=== PATIENT | female | born 1975 | race Caucasian/White ===

== ENCOUNTER 2017-11-06 12:13 | Inpatient (IN) | payer OTHER ==
--- NOTE | 2017-11-06 12:22 | PDOC ---
History of Present Illness - General Chief Complaint: Lethargy Stated Complaint: LETHARGIC (PCP SENT) Time Seen by Provider: 11/06/17 12:20 History Source: Patient, Primary Care Provider Exam Limitations: No Limitations - History of Present Illness Initial Comments: This is a 42 YOF with h/o persistent dysfunctional uterine bleeding despite uterine ablation 1.5 years ago, multiple blood transfusions, and regular iron infusions for anemia, who was instructed by her PCP Dr. Michelle to come in because her h/h drawn yesterday resulted with Hgb 5.6 and Hct 18.9. The patient herself notes that she has had a continuous menstrual period for the past month, which started out as horse trainer spotting but over the past week has become very heavy with bright red blood and clots. Over the past week she has has worsening headache, SOB especially on exertion, palpitations, mild midsternal chest heaviness, and generalized weakness. This is similar to her prior episodes of severe anemia requiring blood transfusion. She denies any cough, orthopnea, leg swelling, fever, chills, vomiting, diarrhea, constipation , or other symptoms. Past History - Past Medical History Allergies/Adverse Reactions: Allergies Allergy/AdvReac Type Severity Reaction Status Date / Time No Known Drug Allergies Allergy Verified 09/06/15 07:13 Home Medications: Ambulatory Orders NK [No Known Home Medication] 09/04/15 Anemia: Yes Asthma: No Cancer: No Cardiac Disorders: No CVA: No COPD: No CHF: No Dementia: No Diabetes: No GI Disorders: No Disorders: No HTN: No Hypercholesterolemia: No Liver Disease: No Seizures: No Thyroid Disease: No - Surgical History Abdominal Surgery: No Appendectomy: Yes Cardiac Surgery: No Cholecystectomy: No Lung Surgery: No Neurologic Surgery: No Orthopedic Surgery: No - Suicide/Smoking/Psychosocial Hx Smoking History: Current every day smoker Have you smoked in the past 12 months: Yes Number of Cigarettes Smoked Daily: 40 Cigars Per Day: 30 'Breaking Loose' booklet given: 09/06/15 Hx Alcohol Use: No Drug/Substance Use Hx: No Substance Use Type: None Hx Substance Use Treatment: No Cardiac Specific PMH - Complaint Specific PMHX Pacemaker: No Review of Systems - Review of Systems Able to Perform ROS?: Yes Constitutional: No: Chills, Fever, Unexplained wgt Loss HEENTM: No: Nose Congestion, Throat Pain Respiratory: Yes: Shortness of Breath, SOB with Exertion. No: Cough, Productive cough Cardiac (ROS): Yes: Chest Pain, Palpitations. No: Edema ABD/GI: No: Constipated, Diarrhea, Nausea, Vomiting : No: Burning, Dysuria Musculoskeletal: No: Back Pain, Neck Pain Integumentary: No: Bruising, Rash Neurological: Yes: Headache. No: Numbness, Tingling, Weakness, Dizziness Endocrine: No: Unexplained Weight Gain, Unexplained Weight Loss *Physical Exam - Vital Signs Last Vital Signs Temp Pulse Resp BP Pulse Ox 97.7 F 94 H 16 123/73 100 11/06/17 12:20 11/06/17 12:20 11/06/17 12:20 11/06/17 12:20 11/06/17 12:20 - Physical Exam General Appearance: Yes: Nourished, Other (pleasant adult female who appears very pale, conversive and alert and oriented and answers questions appropriately ). No: Apparent Distress HEENT: positive: EOMI, Normal Voice, Pale Conjunctivae, Hearing Grossly Normal. negative: Scleral Icterus (R), Scleral Icterus (L), Nasal Congestion Neck: positive: Trachea midline, Supple. negative: Tender, Rigid Respiratory/Chest: positive: Lungs Clear, Normal Breath Sounds. negative: Respiratory Distress, Crackles, Rhonchi, Stridor, Wheezing Cardiovascular: positive: Regular Rhythm, Regular Rate. negative: Murmur Gastrointestinal/Abdominal: positive: Normal Bowel Sounds, Soft. negative: Tender, Organomegaly, Pulsatile Mass, Guarding Musculoskeletal: positive: Normal Inspection. negative: Decreased Range of Motion, Vertebral Tenderness Extremity: positive: Normal Capillary Refill, Normal Inspection, Normal Range of Motion. negative: Tender, Cyanosis Integumentary: positive: Normal Color, Dry, Warm, Pale. negative: Erythema, Rash, Bruising Neurologic: positive: sales administration manager II-XII NML intact (grossly), Fully Oriented, Alert, Normal Mood/Affect, Normal Response, Motor Strength /5 ED Treatment Course - LABORATORY CBC & Chemistry Diagram: 11/06/17 13:43 11/06/17 13:43 - ADDITIONAL ORDERS Additional order review: Laboratory Results 11/06/17 11/06/17 11/06/17 13:43 13:42 13:42 PT with INR 11.00 INR 0.97 PTT (Actin FS) 24.7 L Sodium 141 Potassium 4.3 Chloride 110 H Carbon Dioxide 23 Anion Gap 8 BUN 11 Creatinine 0.7 Creat Clearance w eGFR > 60 Random Glucose 122 H Calcium 8.3 L Ferritin 1.4 L Total Bilirubin 0.2 AST 22 ALT 20 Alkaline Phosphatase 41 L Creatine Kinase 88 Troponin I < 0.02 B-Natriuretic Peptide 411.85 H Total Protein 6.2 L Albumin 3.2 L Blood Type Cancelled Antibody Screen Cancelled Crossmatch 11/06/17 13:20 PT with INR INR PTT (Actin FS) Sodium Potassium Chloride Carbon Dioxide Anion Gap BUN Creatinine Creat Clearance w eGFR Random Glucose Calcium Ferritin Total Bilirubin AST ALT Alkaline Phosphatase Creatine Kinase Troponin I B-Natriuretic Peptide Total Protein Albumin Blood Type A NEGATIVE Antibody Screen Negative Crossmatch See Detail 11/06/17 13:43 RBC 2.47 L D MCV 71.5 L MCHC 29.0 L RDW 18.7 H MPV 9.0 Neutrophils % 58.8 Lymphocytes % 31.8 Monocytes % 4.3 Eosinophils % 3.6 Basophils % 1.5 - Medications Given in the ED: ED Medications Discontinued Medications Generic Name Dose Route Start Last Admin Trade Name Freq PRN Reason Stop Dose Admin Sodium Chloride 1,000 ml 11/06/17 12:25 11/06/17 13:30 Normal Saline - IV 11/06/17 12:26 1,000 ml ONCE ONE Administration Medical Decision Making - Medical Decision Making Adult patient was sent to the ED by their outpatient provider for symptomatic anemia requiring blood transfusion. Initial Vital Signs Temp Pulse Resp BP Pulse Ox 97.7 F 94 H 16 123/73 100 11/06/17 12:20 11/06/17 12:20 11/06/17 12:20 11/06/17 12:20 11/06/17 12:20 Exam: awake, a/o x4, appears pale, pale conjunctiva, normal heart and lung and abdominal exams, no leg edema DDX IBNLT: W/U ordered: CBCD CMP Type and Screen Coags EKG TX ordered: IVF pRBC x3 units Will need to be monitored for transfusion rxn i.e. anaphylaxis, hemolytic rxn, urticarial rxn, nonhemolytic febrile rxn, TRALI, and delayed hemolytic reaction. EKG: CXR: Labs: Repeat VS: Reassessment: 11/06/17 15:17 The Pt is unsafe for discharge at this time. They require further hospital observation, workup, and treatment. Microblog sent to [facility] for admission (as per request from Dr. Michelle) . Spoke with [facility], in agreement Pt to be admitted to [facility]. Decision to Admit order placed to [facility] covering attending Dr. Greene. *DC/Admit/Observation/Transfer Diagnosis at time of Disposition: Dysfunctional uterine bleeding Anemia Qualifiers: Anemia type: unspecified type Qualified Code(s): D64.9 - Anemia, unspecified Headache Qualifiers: Headache type: unspecified Headache chronicity pattern: unspecified pattern Intractability: not intractable Qualified Code(s): R51 - Headache - Discharge Dispostion Condition at time of disposition: Guarded Decision to Admit order: Yes Decision to Admit order Date/Time: Decision to Admit Order Category Date Time Status Decision to Admit to Hospital Routine Admission 11/06/17 15:16 Ordered - Referrals Referrals: Ariadna Michelle MD [Primary Care Provider] - - Patient Instructions - Post Discharge Activity
[2017-11-06] MEDS ORDERED: SODIUM CHLORIDE 0.9% 500 ML INFUS.BAG IV ONE (12:25)
--- NOTE | 2017-11-06 12:44 | PDOC ---
Attending Attestation - Resident Resident Name: Maira Bojorquez - ED Attending Attestation I have performed the following: I have examined & evaluated the patient, The case was reviewed & discussed with the resident, I agree w/resident's findings & plan, Exceptions are as noted - HPI HPI: 11/06/17 13:09 Patient is a 42 F, with PMHx of menorrhagia with associated anemia, who presents with 1 months of heavy vaginal bleeding. Patient states that 2 months ago she had an uterine ablation, and prior to that she has been admitted for a transfusion twice. She states that she gets infused with iron every 3 months. She states that it began as light spotting but she is now experiencing a constant heavy flow with bright red blood, and is passing large dark red clots. She also reports feeling weak, lightheaded and short of breath (especially on exertion). She also reports chest heaviness. She states that she has noticed she looks paler than usual. PCP: Ariadna Michelle M.D. Allergies: NKDA Social Hx: Smokes cigarettes> 1pack /day. Denies EtOH or illicit drug use. - Physicial Exam PE: 11/06/17 12:43 agree with resident exam - Medical Decision Making 11/06/17 13:42 42yo F hx DUB presents with 1 month of progressive vaginal bleeding, now with symptomatic anemia. WIll rpt labs, transfuse, discuss with Dr. Arriaga and admit. Pt HDS at this time. Heart Score/ECG Review #1 11/06/17 14:24 Twelve-lead EKG was performed and reviewed by me. Normal sinus rhythm, rate 87. Normal axis and intervals. No ST elevations. Isolated T-wave inversion in lead III.
[2017-11-06 13:46] LABS: BASO % 1.5 % (0-2.0); EOS % 3.6 % (0-4.5); HEMATOCRIT 17.7 % (32.4-45.2); LYMPH % 31.8 % (8-40); MCH 20.8 pg (25.7-33.7); MEAN CELL VOLUME 71.5 fl (80-96); MONO % 4.3 % (3.8-10.2); NEUT % 58.8 % (42.8-82.8); PLATELET COUNT 326 K/MM3 (134-434); RBC 2.47 M/mm3 (3.60-5.2); RDW 18.7 % (11.6-15.6); WHITE BLOOD COUNT 8.3 K/mm3 (4.0-10.0)
[2017-11-06 13:55] LABS: HEMOGLOBIN 5.1 GM/dL (10.7-15.3)
[2017-11-06 14:12] LABS: INR 0.97 (0.82-1.09)
[2017-11-06 14:14] LABS: ALBUMIN 3.2 g/dl (3.4-5.0); ANION GAP 8 (8-16); BLOOD UREA NITROGEN 11 mg/dL (7-18); CALCIUM 8.3 mg/dL (8.5-10.1); CHLORIDE 110 mmol/L (98-107); CO2 23 mmol/L (21-32); GLUCOSE,RANDOM 122 mg/dL (74-106); POTASSIUM 4.3 mmol/L (3.5-5.1); SODIUM 141 mmol/L (136-145)
[2017-11-06 14:14] LABS: ACTIVATED PTT 24.7 SECONDS (26.9-34.4)
[2017-11-06 14:17] LABS: BILIRUBIN,TOTAL 0.2 mg/dL (0.2-1.0); CREATININE 0.7 mg/dL (0.55-1.02); SGOT/AST 22 U/L (15-37); SGPT/ALT 20 U/L (12-78); TOT PROT 6.2 g/dl (6.4-8.2)
[2017-11-06 14:20] LABS: ALK PHOS 41 U/L (45-117); N-TERMINAL BNP 411.85 pg/ml (5-125)
[2017-11-06 14:32] LABS: ANISOCYTOSIS 1+; PLATELET ESTIMATE NORMAL; TEAR DROP CELLS 1+
--- NOTE | 2017-11-06 15:50 | HP ---
CHIEF COMPLAINT: vaginal bleeding, shortness of breath PCP: Dr. Michelle HISTORY OF PRESENT ILLNESS: This is a 42 year old female with PMHx of vaginal bleeding (s/p endometrial ablasion 2015), who presented to the ED with 8 days of severe vaginal bleeding and shortness of breath. The patient reports about a month ago she developed spotting which then turned into vaginal hemorrhaging about 8 days ago. She reports episodes of passing clots as well. The patient states over the past two days she has had some dyspnea on exertion. She denies any chest pain, palpitations, dizziness, syncope, headache, abdominal pain, nausea, vomiting, diarrhea, lower extremity swelling. ER course was notable for: (1) Temp 97.7, pulse 94, BP 123/73, resp 16, O2 100% on RA (2) Hgb 5.1 Recent Travel: denies PAST MEDICAL HISTORY: as above PAST SURGICAL HISTORY: as above Social History: Smokinppd for "years" Alcohol: denies Drugs: denies Family History: Allergies No Known Drug Allergies Allergy (Verified 09/06/15 07:13) HOME MEDICATIONS: Home Medications Medication Instructions Recorded NK [No Known Home Medication] 09/04/15 REVIEW OF SYSTEMS CONSTITUTIONAL: Absent: fever, chills, diaphoresis, generalized weakness, malaise, loss of appetite, weight change HEENT: Absent: rhinorrhea, nasal congestion, throat pain, throat swelling, difficulty swallowing, mouth swelling, ear pain, eye pain, visual changes CARDIOVASCULAR: Absent: chest pain, syncope, palpitations, irregular heart rate, lightheadedness , peripheral edema RESPIRATORY: GALINDO x2 days Absent: cough, orthopnea, wheezing, stridor, hemoptysis GASTROINTESTINAL: Absent: abdominal pain, abdominal distension, nausea, vomiting, diarrhea, constipation, melena, hematochezia GENITOURINARY: Vaginal bleeding x8 days, heavy at times and passing clots. Absent: dysuria, frequency, urgency, hesitancy, hematuria, flank pain MUSCULOSKELETAL: Absent: myalgia, arthralgia, joint swelling, back pain, neck pain SKIN: Absent: rash, itching, pallor HEMATOLOGIC/IMMUNOLOGIC: Absent: easy bleeding, easy bruising, lymphadenopathy, frequent infections ENDOCRINE: Absent: unexplained weight gain, unexplained weight loss, heat intolerance, cold intolerance NEUROLOGIC: Absent: headache, focal weakness or paresthesias, dizziness, unsteady gait, seizure, mental status changes, bladder or bowel incontinence PSYCHIATRIC: Absent: anxiety, depression, suicidal or homicidal ideation, hallucinations. PHYSICAL EXAMINATION Vital Signs - 24 hr 11/06/17 11/06/17 11/06/17 12:20 15:00 15:32 Temperature 97.7 F 97.8 F 98.1 F Pulse Rate 94 H Pulse Rate [ 87 82 Apical] Respiratory 16 20 20 Rate Blood Pressure 123/73 Blood Pressure 115/75 112/72 [Left Arm] O2 Sat by Pulse 100 100 100 Oximetry (%) GENERAL: Awake, alert, and fully oriented, in no acute distress. HEAD: Normal with no signs of trauma. EYES: Pupils equal, round and reactive to light, extraocular movements intact, sclera anicteric, conjunctiva clear. No lid lag. EARS, NOSE, THROAT: Ears normal, nares patent, oropharynx clear without exudates. Moist mucous membranes. NECK: Normal range of motion, supple without lymphadenopathy, JVD, or masses. LUNGS: Breath sounds equal, clear to auscultation bilaterally. No wheezes, and no crackles. No accessory muscle use. HEART: Regular rate and rhythm, normal S1 and S2 without murmur, rub or gallop. ABDOMEN: Soft, nontender, not distended, normoactive bowel sounds, no guarding, no rebound, no masses. No hepatomegaly or splenomegaly. MUSCULOSKELETAL: Normal range of motion at all joints. No bony deformities or tenderness. No CVA tenderness. UPPER EXTREMITIES: 2+ pulses, warm, well-perfused. No cyanosis. No clubbing. No peripheral edema. LOWER EXTREMITIES: 2+ pulses, warm, well-perfused. No calf tenderness. No peripheral edema. NEUROLOGICAL: Cranial nerves II-XII intact. Normal speech. Normal gait. PSYCHIATRIC: Cooperative. Good eye contact. Appropriate mood and affect. SKIN: Warm, dry, normal turgor, no rashes or lesions noted, normal capillary refill. Laboratory Results - last 24 hr 11/06/17 11/06/17 11/06/17 13:20 13:42 13:42 WBC RBC Hgb Hct MCV MCH MCHC RDW Plt Count MPV Absolute Neuts (auto) Neutrophils % Lymphocytes % Monocytes % Eosinophils % Basophils % Nucleated RBC % Hypochromia Platelet Estimate Anisocytosis Tear Drop Cells PT with INR 11.00 INR 0.97 PTT (Actin FS) 24.7 L Sodium Potassium Chloride Carbon Dioxide Anion Gap BUN Creatinine Creat Clearance w eGFR Random Glucose Calcium Ferritin Total Bilirubin AST ALT Alkaline Phosphatase Creatine Kinase Troponin I B-Natriuretic Peptide Total Protein Albumin Blood Type A NEGATIVE Cancelled Antibody Screen Negative Cancelled Crossmatch See Detail 11/06/17 11/06/17 13:43 13:43 WBC 8.3 RBC 2.47 L D Hgb 5.1 L* D Hct 17.7 L D MCV 71.5 L MCH 20.8 L MCHC 29.0 L RDW 18.7 H Plt Count 326 MPV 9.0 Absolute Neuts (auto) 4.9 Neutrophils % 58.8 Lymphocytes % 31.8 Monocytes % 4.3 Eosinophils % 3.6 Basophils % 1.5 Nucleated RBC % 0 Hypochromia 3+ Platelet Estimate Normal Anisocytosis 1+ Tear Drop Cells 1+ PT with INR INR PTT (Actin FS) Sodium 141 Potassium 4.3 Chloride 110 H Carbon Dioxide 23 Anion Gap 8 BUN 11 Creatinine 0.7 Creat Clearance w eGFR > 60 Random Glucose 122 H Calcium 8.3 L Ferritin 1.4 L Total Bilirubin 0.2 AST 22 ALT 20 Alkaline Phosphatase 41 L Creatine Kinase 88 Troponin I < 0.02 B-Natriuretic Peptide 411.85 H Total Protein 6.2 L Albumin 3.2 L Blood Type Antibody Screen Crossmatch Assessment: This is a 42 year old female with PMHx of vaginal bleeding (s/p endometrial ablasion 2015), who presented to the ED with 8 days of severe vaginal bleeding and shortness of breath. Plan: 1) Menorrhagia - Severe symptomatic anemia - Hgb 5.1, ordered for 3u PRBC - Monitor H/H - F/u reptile keeper consult 2) F/E/N: - Monitor electrolytes - Regular diet 3) Prophylaxis: - Hold all chemical DVT prophylaxis 2/2 severe anemia - SCDs bilaterally 4) Dispo: - Requires continued inpatient care CODE STATUS: FULL CODE Visit type - Emergency Visit Emergency Visit: Yes ED Registration Date: 11/06/17 Care time: The patient presented to the Emergency Department on the above date and was hospitalized for further evaluation of their emergent condition. - New Patient This patient is new to me today: Yes Date on this admission: 11/06/17 - Critical Care Critical Care patient: No Hospitalist Screening - Colonoscopy Questionnaire Colonoscopy Questionnaire: Colonoscopy Questionnaire - Patient: 50 - 75 years old and never had a screening colonoscopy: No History of colon or rectal polyps, or CA: No History of IBD, Crohn's disease or UC: No History of abdominal radiation therapy as a child: No - Relative: 1 with colon or rectal CA, or polyps at age 60 or younger: No Colon or rectal CA diagnosed at age 45 or younger: No Multiple relatives with colon or rectal CA: No - Outcome: Screening Result: Negative Screen
[2017-11-06 18:33] VITALS: BMI 29.8
[2017-11-07 07:23] LABS: EOS % 3.5 % (0-4.5); HEMATOCRIT 24.5 % (32.4-45.2); HEMOGLOBIN 8.1 GM/dL (10.7-15.3); LYMPH % 27.5 % (8-40); MCH 25.6 pg (25.7-33.7); MCHC 33.1 g/dl (32.0-36.0); MEAN CELL VOLUME 77.4 fl (80-96); MEAN PLT VOLUME 9.3 fl (7.5-11.1); MONO % 6.3 % (3.8-10.2); NEUT % 61.7 % (42.8-82.8); PLATELET COUNT 265 K/MM3 (134-434); RBC 3.16 M/mm3 (3.60-5.2); RDW 20.7 % (11.6-15.6); WHITE BLOOD COUNT 9.9 K/mm3 (4.0-10.0)
[2017-11-07 08:18] LABS: ALBUMIN 2.9 g/dl (3.4-5.0); CALCIUM 7.8 mg/dL (8.5-10.1); CHLORIDE 110 mmol/L (98-107); POTASSIUM 4.6 mmol/L (3.5-5.1); SODIUM 140 mmol/L (136-145)
[2017-11-07 08:25] LABS: ALK PHOS 41 U/L (45-117); ANION GAP 5 (8-16); BILIRUBIN,TOTAL 0.3 mg/dL (0.2-1.0); BLOOD UREA NITROGEN 13 mg/dL (7-18); CO2 25 mmol/L (21-32); CREATININE 0.7 mg/dL (0.55-1.02); GLUCOSE,RANDOM 90 mg/dL (74-106); SGOT/AST 17 U/L (15-37); SGPT/ALT 18 U/L (12-78); TOT PROT 5.6 g/dl (6.4-8.2)
[2017-11-07 08:38] VITALS: BP 120/89; PULSE 84; TEMP 97.4
--- NOTE | 2017-11-07 10:08 | PN ---
Progress Note (short form) - Note Progress Note: Subjective: The patient was seen and examined at the bedside, she has no complaints today and would like to go home Seen by Dr. Stern, recommend Depo-Provera IM and ultrasound Current Medications Generic Name Dose Route Start Last Admin Trade Name Francisco PRN Reason Stop Dose Admin Medroxyprogesterone Acetate 150 mg 11/07/17 10:17 Depo-Provera - IM 11/07/17 10:18 ONCE ONE Objective: Vital Signs Period Temp Pulse Resp BP Sys/Pierce Pulse Ox Last 24 Hr 97.4 F-98.9 F 78-94 15-20 112-147/53-89 100-100 Physical Exam: General: NAD, A&Ox3 Lungs: CTA bilaterally Heart: RRR, S1S2 Abd: Soft, non-tender, non-distended. Normoactive bowel sounds Ext: Warm, well-perfused. 2+ DP/PT bilaterally Neuro: CN 2-12 intact CBCD WBC 9.9 K/mm3 (4.0-10.0) 11/07/17 06:30 RBC 3.16 M/mm3 (3.60-5.2) L D 11/07/17 06:30 Hgb 8.1 GM/dL (10.7-15.3) L D 11/07/17 06:30 Hct 24.5 % (32.4-45.2) L D 11/07/17 06:30 MCV 77.4 fl (80-96) L 11/07/17 06:30 MCHC 33.1 g/dl (32.0-36.0) 11/07/17 06:30 RDW 20.7 % (11.6-15.6) H 11/07/17 06:30 Plt Count 265 K/MM3 (134-434) 11/07/17 06:30 MPV 9.3 fl (7.5-11.1) 11/07/17 06:30 CMP Sodium 140 mmol/L (136-145) 11/07/17 06:30 Potassium 4.6 mmol/L (3.5-5.1) 11/07/17 06:30 Chloride 110 mmol/L (98-107) H 11/07/17 06:30 Carbon Dioxide 25 mmol/L (21-32) 11/07/17 06:30 Anion Gap 5 (8-16) L 11/07/17 06:30 BUN 13 mg/dL (7-18) 11/07/17 06:30 Creatinine 0.7 mg/dL (0.55-1.02) 11/07/17 06:30 Creat Clearance w eGFR > 60 (>60) 11/07/17 06:30 Random Glucose 90 mg/dL (74-106) 11/07/17 06:30 Calcium 7.8 mg/dL (8.5-10.1) L 11/07/17 06:30 Total Bilirubin 0.3 mg/dL (0.2-1.0) D 11/07/17 06:30 AST 17 U/L (15-37) 11/07/17 06:30 ALT 18 U/L (12-78) 11/07/17 06:30 Alkaline Phosphatase 41 U/L (45-117) L 11/07/17 06:30 Total Protein 5.6 g/dl (6.4-8.2) L 11/07/17 06:30 Albumin 2.9 g/dl (3.4-5.0) L 11/07/17 06:30 CARDIAC ENZYMES Creatine Kinase 88 IU/L (26-192) 11/06/17 13:43 Troponin I < 0.02 ng/ml (0.00-0.05) 11/06/17 13:43 Assessment: This is a 42 year old female with PMHx of vaginal bleeding (s/p endometrial ablasion 2015), who presented to the ED with 8 days of severe vaginal bleeding and shortness of breath. Plan: 1) Menorrhagia - Severe symptomatic anemia - Hgb 8.1 s/p 3u PRBC - F/u ultrasound - Will give Depo-Provera per real estate manager - F/u real estate manager consult 2) F/E/N: - Monitor electrolytes - Regular diet 3) Prophylaxis: - Hold all chemical DVT prophylaxis 2/2 severe anemia - SCDs bilaterally - OOB ambulating 4) Dispo: - Likely discharge after TUBE LANCER evaluation CODE STATUS: FULL CODE Visit type - Emergency Visit Emergency Visit: Yes ED Registration Date: 11/06/17 Care time: The patient presented to the Emergency Department on the above date and was hospitalized for further evaluation of their emergent condition. - New Patient This patient is new to me today: No - Critical Care Critical Care patient: No
[2017-11-07] MEDS ORDERED: medroxyPROGESTERone ACET 150 MG/1 ML VIAL IM ONE ×2 (10:17→12:00)
--- NOTE | 2017-11-07 11:04 | CONS ---
DATE OF CONSULTATION: 11/07/2017 REASON FOR CONSULTATION: Vaginal bleeding, severe anemia. HISTORY: This patient is a 42-year-old female 3, para 3 with a history of prolonged menometrorrhagia for many years. She had endometrial ablation in 2016 but continues to have heavy bleeding with her period and prolonged bleeding. She had been seen by Dr. Mckeon in the past and was asked to see her for this admission because she was admitted with hemoglobin of 5.1 and hematocrit of 17.7. Denies any rectal bleeding. Feels tired. Has low abdominal cramps. PHYSICAL EXAMINATION: Abdomen: Soft and nontender. No masses palpable. Pelvic: Patient denied pelvic exam because still has some dark, vaginal bleeding. IMPRESSION: Menometrorrhagia, rule out fibroids, rule out endometrial polyp status post previous ablation. PLAN: Patient was advised of Depo-Medrol for now to stop the bleeding. She had received 3 units of blood transfusion and feels fine and states the bleeding is very minimal. She was advised to follow up in the office to have the Pap smear and possible endometrial biopsy and further evaluation for further workup for the menometrorrhagia. The patient understands the importance of follow up in the office and also advised to take vitamins and iron. If she has any heavy bleeding, clots, or dizziness to call Cat [phone]
--- NOTE | 2017-11-07 14:34 | DS ---
Physical Examination Vital Signs: Vital Signs Temperature 97.4 F L 11/07/17 08:37 Pulse Rate 84 11/07/17 08:37 Respiratory Rate 18 11/07/17 08:37 Blood Pressure 120/89 11/07/17 08:37 O2 Sat by Pulse Oximetry (%) 98 11/07/17 08:00 Labs: CBC, BMP 11/07/17 06:30 11/07/17 06:30 Discharge Summary Reason For Visit: DYSFUNCTIONAL UTERINE BLEEDING,ANEMIA,HEADACHE Current Active Problems Anemia (Acute) Dysfunctional uterine bleeding (Acute) Headache (Acute) Condition: Improved - Instructions Diet, Activity, Other Instructions: Please return to the ED with new, persistent, or worsening symptoms. Please follow-up with providers as indicated. If you have any increase in shortness of breath, chest pain, palpitations, dizziness, fainting, worsening vaginal bleeding, or any other concerning symptoms, please go immediately to the closest emergency department for an evaluation. Referrals: Ariadna Michelle MD [Primary Care Provider] - 1 Week Yann Macario MD [Staff Physician] - (Please follow-up with Dr. Macario within 2-3 days for further management of your irregular, heavy vaginal bleeding , and to have a pap smear and possible endometrial biopsy. ) Disposition: HOME - Home Medications Comprehensive Discharge Medication List: Ambulatory Orders Docusate Sodium [Colace] 100 mg PO BID #60 capsule 11/07/17 Ferrous Sulfate 325 mg PO BID #30 tablet 11/07/17 Multivitamin [Multiple Vitamins] 1 each PO DAILY #30 tablet 11/07/17
--- NOTE | 2017-11-07 14:40 | EKG ---
Test Reason : Blood Pressure : / mmHG Vent. Rate : 087 BPM Atrial Rate : 087 BPM P-R Int : 142 ms QRS Dur : 084 ms QT Int : 384 ms P-R-T Axes : 046 010 012 degrees QTc Int : 462 ms NORMAL SINUS RHYTHM NORMAL ECG WHEN COMPARED WITH ECG OF 08-DEC-2014 10:22, NO SIGNIFICANT CHANGE WAS FOUND Confirmed by MD Garcia Daniel ([id number]) on 11/07/2017 2:40:14 PM Referred By: Confirmed By:Fernando Garcia MD
== END 2017-11-07 18:28 | disposition home or self-care (01) | DRG 663 ==
LOC: JER 12:13 → JERBED 15:16 → J4W 18:02
PROVIDERS: ADMIT Internal Medicine; ATTEND Registered Nurse
PROC: 30233N1 Transfusion of Nonautologous Red Blood Cells into Peripheral Vein, Percutaneous Approach (ICD-10-PCS; principal; 2017-11-06)
DX: D64.9 Anemia, unspecified (principal); N93.8 Other specified abnormal uterine and vaginal bleeding; N92.0 Excessive and frequent menstruation with regular cycle; R51 Headache; R06.02 Shortness of breath; D25.9 Leiomyoma of uterus, unspecified
CPT/HCPCS: 36415; 36430; 76830-TC; 80053; 82550; 82728; 83880; 84484; 85025; 85610; 85730; 86850; 86900; 86901; 86922; 93005; 93010; 99285-25; P9038; P9058

== ENCOUNTER 2018-04-08 04:58 | Inpatient (IN) | payer OTHER ==
[2018-04-06 16:01] VITALS: BMI 29.7
--- NOTE | 2018-04-08 08:01 | HP ---
History & Physical Update - Physical Physical: No Change - Assessment Assessment: No Change - Plan Plan: No Change (for supracervical abdominal hysterectomy, bilateral salpingectomy, possible BSO)
[2018-04-08] MEDS ORDERED: ROPIVACAINE HCL 0.5% 30ML VIAL ONE (11:50)
[2018-04-08] MEDS ORDERED: MIDAZOLAM HCL 2 MG/2 ML SINGLE DOSE VIAL ONE ×2 (11:51)
[2018-04-08] MEDS ORDERED: PROPOFOL 20 ML ONE ×2 (13:52→14:51)
[2018-04-08] MEDS ORDERED: ROCURONIUM BROMIDE 50 MG/5 ML VIAL ONE (13:52)
[2018-04-08] MEDS ORDERED: fentaNYL CITRATE 250 MCG/5 ML VIAL ONE (13:52)
[2018-04-08] MEDS ORDERED: LIDOCAINE HCL/PF 2% SDV 5ML VIAL ONE (13:52)
[2018-04-08] MEDS ORDERED: ceFAZolin 2 GRAM PREMIX BAG IVPB ONE ×2 (14:00→14:22)
[2018-04-08] MEDS ORDERED: DEXAMETHASONE SOD PHOSPHATE 4 MG/1 ML VIAL ONE (14:15)
[2018-04-08] MEDS ORDERED: ceFAZolin SODIUM 1 GM VIAL ONE ×2 (14:20→21:46)
[2018-04-08] MEDS ORDERED: NEOSTIGMINE METHYLSULFATE 0.5 MG/ML - 10 ML MDV ONE (15:20)
[2018-04-08] MEDS ORDERED: ONDANSETRON 4 MG/2 ML VIAL IVPUSH PRN ×2 (15:42→15:48)
[2018-04-08] MEDS ORDERED: IBUPROFEN 800 MG/8 ML IJ IVPB PRN (15:42)
[2018-04-08] MEDS ORDERED: ELECTROLYTE-148 SOLN 1,000 ML IV SCH (15:45)
[2018-04-08] MEDS ORDERED: DOCUSATE SODIUM 100 MG CAPSULE (FP) PO PRN (15:46)
[2018-04-08] MEDS ORDERED: oxyCODONE HCL 5 MG TABLET PO PRN (15:46)
[2018-04-08] MEDS ORDERED: HYDROmorphone *PCA* 10MG/50ML DISP.SYRIN PCA ONE (15:47)
[2018-04-08] MEDS ORDERED: LACTATED RINGERS SOLUTION 1,000 ML IV SCH (16:00)
[2018-04-08] MEDS ORDERED: HYDROmorphone *PCA* 10MG/50ML DISP.SYRIN PCA SCH ×3 (16:00→23:15)
[2018-04-08] MEDS ORDERED: PROMETHAZINE HCL 25 MG/1 ML VIAL ONE (16:02)
[2018-04-08] MEDS ORDERED: PROMETHAZINE HCL 25 MG/1 ML VIAL IVPUSH ONE (16:40)
[2018-04-08] MEDS ORDERED: DEXTROSE 5%-WATER - 50 ML IVPB ONE (21:46)
[2018-04-08] MEDS: CEFAZOLIN 1 GM in DEXTROSE 5%-WATER - 50 ML IVPB SCH (21:52)
[2018-04-09] MEDS ORDERED: ceFAZolin SODIUM 1 GM VIAL ONE ×2 (06:15→14:05)
[2018-04-09] MEDS ORDERED: DEXTROSE 5%-WATER - 50 ML IVPB ONE ×2 (06:15→14:04)
[2018-04-09] MEDS: CEFAZOLIN 1 GM in DEXTROSE 5%-WATER - 50 ML IVPB SCH ×2 (06:21→14:11)
--- NOTE | 2018-04-09 06:51 | OP ---
DATE OF OPERATION: 04/08/2018 PREOPERATIVE DIAGNOSIS: Pelvic pain, menorrhagia, anemia, fibroid uterus. POSTOPERATIVE DIAGNOSIS: Pelvic pain, menorrhagia, anemia, fibroid uterus, right ovarian cyst. PROCEDURE PERFORMED: Supracervical abdominal hysterectomy, bilateral salpingectomy. SURGEON: Deborah Macario MD AGRICULTURAL PRODUCE PACKER: Jose Shah MD ANESTHESIA: General. ESTIMATED BLOOD LOSS: 150 mL. DESCRIPTION OF PROCEDURE: The patient was taken to the operating room and had adequate general anesthesia. The abdomen and perineum were prepped and draped. A Pfannenstiel abdominal skin incision was made. The abdominal wall was cut layer by layer until the peritoneum was exposed and incised. Upon entering the abdominal cavity, the upper abdomen was checked and was normal. The bowels were packed away. There was a large fibroid uterus occupying the whole pelvic area. Both ovaries were normal. The cul-de-sac was free of adhesions. Then both corner regions of the uterus were grasped with and the uterus was delivered outside of the abdomen. Both round ligaments were identified and grasped with bipolar LigaSure cautery, cauterized and cut. The anterior leaf of the broad ligament was opened, and the bladder was pushed down. Then the right tube was grasped with a [place] clamp and along the mesosalpinx with bipolar cautery was cauterized, and the tubes were removed bilaterally. Then a hole was made into the infundibulopelvic ligament. The ovarian ligament was grasped with a Lashaun clamp and cut, and the clamp replaced with 0 Vicryl ties bilaterally. Then the bladder was further pushed down. The uterine arteries were identified bilaterally, grasped with Lashaun clamps, cut, and the clamp replaced with 0 Vicryl suture bilaterally. The paracervical area was grasped with a Lashaun clamp, cut and the camp replaced with 0 Vicryl suture bilaterally until the endocervical area was reached. At this time the cervix was amputated and the uterus was removed. Then the cervix was sutured with interrupted 0 Vicryl and hemostasis was established. No active bleeding was seen. All the lap, sponge and instrument counts were correct. The pelvic cavity was irrigated several times. No bleeding was seen. Both ureters were manually palpated and were normal. Then the peritoneum was closed with 0 Vicryl continuous suture. The muscles were brought together with interrupted suture of 0 Vicryl. The fascia was closed with 0 Vicryl continuous suture. Then the subcutaneous fat was closed with interrupted suture of 0 Vicryl, and the skin was closed with 3-0 Vicryl subcuticular continuous suture. The patient tolerated the procedure well, and left the OR in good condition. DEBORAH MACARIO M.D. [id number]
[2018-04-09 07:42] LABS: HEMATOCRIT 24.9 % (32.4-45.2); HEMOGLOBIN 7.2 GM/dL (10.7-15.3); MCH 21.2 pg (25.7-33.7); MCHC 28.8 g/dl (32.0-36.0); MEAN CELL VOLUME 73.6 fl (80-96); MEAN PLT VOLUME 9.5 fl (7.5-11.1); PLATELET COUNT 253 K/MM3 (134-434); RBC 3.38 M/mm3 (3.60-5.2); RDW 20.2 % (11.6-15.6); WHITE BLOOD COUNT 12.1 K/mm3 (4.0-10.0)
--- NOTE | 2018-04-09 08:04 | PN ---
Progress Note (short form) - Note Progress Note: Post op day#1.S/P BALJINDER with bilateral salpingectomy under Ga uneventful.Patient on Dilaudid BOND RUNNER and lying in bed comfortably but says has pain score of 5-6/10 on movement.Will continue BOND RUNNER today and will f/u tomorrow.
--- NOTE | 2018-04-09 08:18 | PN ---
Progress Note (short form) - Note Progress Note: pod 1 has incisional pain, no vaginal bleeding, no dizziness CBC, BMP 04/09/18 06:00 Last Vital Signs Temp Pulse Resp BP Pulse Ox 98.3 F 70 18 95/59 L 95 04/09/18 06:00 04/09/18 06:00 04/09/18 06:00 04/09/18 06:00 04/09/18 06:00 abdomen soft, no distension, no cva incision dry, clean no calf tenderness no vaginal bleeding impression hx of preop anemia , hb 7.2 , asymptomatic plan ambulate , repeat cbc in am pain management
[2018-04-09 09:07] LABS: ANION GAP 7 MMOL/L (8-16); BLOOD UREA NITROGEN 10 mg/dL (7-18); CHLORIDE 107 mmol/L (98-107); CO2 26 mmol/L (21-32); CREATININE 0.7 mg/dL (0.55-1.3); GLUCOSE,RANDOM 97 mg/dL (74-106); POTASSIUM 3.7 mmol/L (3.5-5.1); SODIUM 140 mmol/L (136-145)
[2018-04-09] MEDS: ENOXAPARIN NA (PORCINE) 40 MG/0.4 ML DISP.SYRIN SQ SCH (09:39)
[2018-04-09] MEDS: oxyCODONE HCL 5 MG TABLET PO PRN ×3 (10:53→20:35)
[2018-04-09] MEDS: IBUPROFEN 600 MG TABLET (FP) PO PRN ×2 (10:53→16:31)
[2018-04-09] MEDS ORDERED: PCA PUMP KEY 1 EACH EACH ONE (17:14)
[2018-04-09] MEDS: ACETAMINOPHEN 325 MG TABLET (FP) PO PRN (19:30)
[2018-04-10] MEDS: ACETAMINOPHEN 325 MG TABLET (FP) PO PRN ×3 (00:43→10:34)
[2018-04-10] MEDS: oxyCODONE HCL 5 MG TABLET PO PRN ×2 (00:43→06:13)
[2018-04-10 08:19] LABS: BASO % 0.8 % (0-2.0); EOS % 2.7 % (0-4.5); HEMATOCRIT 27.4 % (32.4-45.2); HEMOGLOBIN 7.9 GM/dL (10.7-15.3); MCH 20.4 pg (25.7-33.7); MCHC 28.7 g/dl (32.0-36.0); MEAN PLT VOLUME 8.7 fl (7.5-11.1); MONO % 7.9 % (3.8-10.2); NEUT % 78.6 % (42.8-82.8); PLATELET COUNT 277 K/MM3 (134-434); RBC 3.86 M/mm3 (3.60-5.2); RDW 20.2 % (11.6-15.6); WHITE BLOOD COUNT 12.2 K/mm3 (4.0-10.0)
--- NOTE | 2018-04-10 08:51 | DS ---
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 Signs: Vital Signs Temperature 98.8 F 04/09/18 20:57 Pulse Rate 84 04/09/18 20:57 Respiratory Rate 20 04/09/18 20:57 Blood Pressure 142/79 04/09/18 20:57 O2 Sat by Pulse Oximetry (%) 97 04/09/18 09:00 Constitutional: Yes: Well Nourished, No Distress, Calm Eyes: Yes: WNL, Conjunctiva Clear, EOM Intact HENT: Yes: WNL, Atraumatic, Normocephalic Neck: Yes: WNL, Supple, Trachea Midline Cardiovascular: Yes: WNL, Regular Rate and Rhythm Respiratory: Yes: WNL, Regular, CTA Bilaterally Gastrointestinal: Yes: WNL ...Rectal Exam: Yes: WNL Renal/: Yes: WNL Breast(s): Yes: WNL Musculoskeletal: Yes: WNL Extremities: Yes: WNL Edema: No Integumentary: Yes: WNL Wound/Incision: Yes: Clean/Dry, Well Approximated, Sutures Intact Neurological: Yes: WNL, Alert, Oriented ...Motor Strength: WNL Psychiatric: Yes: WNL, Alert, Oriented Labs: CBC, BMP 04/10/18 08:05 04/09/18 08:19 Discharge Summary Reason For Visit: MENOMETRORRHAGIA, FIBROIDS UTERUS, anemia Procedures: Principal: supracervical abdominal hysterectomy,bilateral salpingectomy Condition: Good - Instructions Diet, Activity, Other Instructions: regular diet, if pain, heavy vaginal bleeding, fever ,call MD follow up office 2 weeks Referrals: Yann Macario MD [Staff Physician] - Disposition: HOME - Home Medications Comprehensive Discharge Medication List: Ambulatory Orders Docusate Sodium [Colace] 100 mg PO BID #60 capsule 11/07/17 Ferrous Sulfate 325 mg PO BID #30 tablet 11/07/17 Multivitamin [Multiple Vitamins] 1 each PO DAILY #30 tablet 11/07/17 Ibuprofen [Motrin -] 600 mg PO TID #90 tablet 04/10/18
[2018-04-10 09:04] VITALS: BP 123/83; PULSE 83; TEMP 97.9
--- NOTE | 2018-04-10 09:33 | PN ---
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
[2018-04-10] MEDS: ENOXAPARIN NA (PORCINE) 40 MG/0.4 ML DISP.SYRIN SQ SCH (10:40)
[2018-04-10 15:06] LABS: ANISOCYTOSIS 1+; MACROCYTOSIS 0; PLATELET ESTIMATE NORMAL
--- NOTE | 2018-04-13 15:35 | PATH ---
Surgical Pathology Report Patient Name: SACHA BRAXTON [facility]. Rec. 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 Specimen(s) Received UTERUS WITH BILATERAL TUBES Clinical History Fibroid uterus, menorrhagia Final Diagnosis UTERUS, BILATERAL FALLOPIAN TUBES, TOTAL ABDOMINAL HYSTERECTOMY AND BILATERAL SALPINGECTOMY: WEAKLY PROLIFERATIVE ENDOMETRIUM. MYOMETRIUM WITH ADENOMYOSIS AND LEIOMYOMA. SCANT UNREMARKABLE ENDOCERVICAL TISSUE. ONE OF THE UNDESIGNATED FALLOPIAN TUBES SHOWS A SMALL PARATUBAL CYST. SECOND UNDESIGNATED FALLOPIAN TUBE IS UNREMARKABLE. Electronically Signed Lucrecia Mares M.D. Gross Description Received in formalin labeled "bilateral fallopian tubes and uterus," is a 1033 g supracervically amputated uterus with no attached adnexa. The undesignated bilateral fallopian tubes are separately received within the same container. The specimen measures 13 cm from left to right, 12.5 cm from superior to inferior and 11 cm from anterior to posterior. The serosa is pink-huntley and smooth. The endometrial cavity measures 11 cm in length and 6 cm from cornu to cornu. The endometrium is huntley-pink and measures up to 0.3 cm in thickness. There is a 10 cm in greatest dimension intramural nodule present. The cut surface of the nodule is huntley and rubbery with whorled architecture. No areas of hemorrhage or necrosis are identified. The myometrium is huntley-pink and firm with whorled architecture, consistent with adenomyosis. The myometrium measures up to 7.3 cm in thickness. The undesignated fallopian tubes are fimbriated and average 4 cm in length. The outer surfaces are huntley alva and smooth. Sectioning reveals unremarkable lumen. Hoisting Engineer sections are submitted in 12 cassettes as follows: 1-cervical stump margin of resection; 7-9-yflqlary endomyometrium; 8-8-nmrqyaasm endomyometrium; 9-0-qdsxzkygfe nodule; 9-arbitrarily designated fallopian tube 1 fimbria; 10-cross sections of fallopian tube 1; 11-arbitrarily designated fallopian tube 2 fimbria; 12-cross sections of fallopian tube 2. 04/09/201804/09/2018
== END 2018-04-10 12:00 | disposition home or self-care (01) | DRG 513 ==
LOC: JSAMEDAYSX 04:58 → J3W 17:20
PROVIDERS: ADMIT Obstetrics & Gynecology; ATTEND Obstetrics & Gynecology
PROC: 0UT70ZZ Resection of Bilateral Fallopian Tubes, Open Approach (ICD-10-PCS; 2018-04-08)
PROC: 0UT90ZL Resection of Uterus, Supracervical, Open Approach (ICD-10-PCS; principal; 2018-04-08 14:30)
DX: N92.0 Excessive and frequent menstruation with regular cycle (principal); D64.9 Anemia, unspecified; D25.9 Leiomyoma of uterus, unspecified; N83.201 Unspecified ovarian cyst, right side; R10.2 Pelvic and perineal pain
CPT/HCPCS: 36415; 80048; 85025; 85027; 86850; 86900; 86901; 88307-TC; 94010; 94760

== ENCOUNTER 2018-07-26 21:34 | Emergency (ER) | payer OTHER ==
[2018-07-26 21:45] VITALS: BP 163/82; PULSE 78; TEMP 98.2; BMI 28.7
--- NOTE | 2018-07-26 21:47 | PDOC ---
Rapid Medical Evaluation Time Seen by Provider: 07/26/18 21:41 Medical Evaluation: Allergies Allergy/AdvReac Type Severity Reaction Status Date / Time No Known Drug Allergies Allergy Verified 04/06/18 15:28 07/26/18 21:41 I have performed a brief in-person evaluation of this patient. The patient presents with a chief complaint of: headache today with some decrease in sensation to left side of face States used no medication so far Pertinent physical exam findings: NAD HEENT: PERRLA even and unlabored breathing NEuro: no droop, moving all limbs freely I have ordered the following: analgesia, labs The patient will proceed to the ED for further evaluation.
[2018-07-26] MEDS ORDERED: ACETAMINOPHEN 500 MG TABLET (FP) PO ONE (21:48)
[2018-07-26] MEDS ORDERED: SODIUM CHLORIDE 0.9% 500 ML INFUS.BAG IV ONE (21:48)
[2018-07-26] MEDS ORDERED: ACETAMINOPHEN 500 MG TABLET (FP) ONE (22:01)
[2018-07-26 22:14] LABS: BASO % 0.7 % (0-2.0); EOS % 3.4 % (0-4.5); HEMATOCRIT 36.7 % (32.4-45.2); LYMPH % 28.6 % (8-40); MCH 26.4 pg (25.7-33.7); MCHC 32.7 g/dl (32.0-36.0); MEAN CELL VOLUME 80.8 fl (80-96); MONO % 4.6 % (3.8-10.2); NEUT % 62.7 % (42.8-82.8); PLATELET COUNT 298 K/MM3 (134-434); RBC 4.54 M/mm3 (3.60-5.2); RDW 18.5 % (11.6-15.6); WHITE BLOOD COUNT 11.3 K/mm3 (4.0-10.0)
[2018-07-26 22:30] LABS: INR 0.97 (0.83-1.09); PROTHROMBIN TIME (PATIENT) 11.5 SEC (9.7-13.0)
[2018-07-26 22:32] LABS: ALBUMIN 3.8 g/dl (3.4-5.0); ALK PHOS 59 U/L (45-117); ANION GAP 7 MMOL/L (8-16); BILIRUBIN,TOTAL 0.2 mg/dL (0.2-1); BLOOD UREA NITROGEN 10 mg/dL (7-18); CHLORIDE 107 mmol/L (98-107); CO2 26 mmol/L (21-32); CREATININE 0.9 mg/dL (0.55-1.3); GLUCOSE,RANDOM 96 mg/dL (74-106); POTASSIUM 3.9 mmol/L (3.5-5.1); SGOT/AST 16 U/L (15-37); SGPT/ALT 17 U/L (13-61); SODIUM 140 mmol/L (136-145); TOT PROT 7.3 g/dl (6.4-8.2)
[2018-07-26 22:33] LABS: ACTIVATED PTT 28.4 SECONDS (25.2-36.5)
--- NOTE | 2018-07-26 22:44 | PDOC ---
Attending Attestation - HPI HPI: 07/26/18 23:18 The patient is a 43 year old female with a significant PMH of recent partial hysterectomy who presents to the emergency department with a headache since 8: 30 PM today. Patient states that her usual headaches are bitemporal, but states the headache today was different. Patient describes the headache as localized to her left forehead with pain over the left eye and associated numbness to the left forehead, cheek, and lip. Patient admits to nausea, photophobia and sonophobia. Patient endorses neck stiffness 2 days ago but denies any today. Patient has not taken any meds for her headache today. Denies any weakness or motor deficits today. Patient has not been evaluated by neurology in the past or had any imaging for her headaches. The patient denies chest pain, shortness of breath, and dizziness. Denies fever, chills, vomit, diarrhea and constipation. Denies dysuria, frequency, urgency and hematuria. Allergies: NKA Past surgical history: Partial hysterectomy Social history: No reported alcohol, drug or cigarette use. PCP: Dr. Rodríguez - Physicial Exam PE: 07/26/18 23:18 Agree with resident's exam. <Shivani Ramírez - Last Filed: 07/26/18 23:18> - Resident Resident Name: Berhane Mitchell - RAJINDER Attending Attestation I have performed the following: I have examined & evaluated the patient, The case was reviewed & discussed with the resident, I agree w/resident's findings & plan - Medical Decision Making 07/27/18 00:31 43-year-old female with several days of left-sided headache Patient's headache improved after Tylenol given in the waiting area CT scan of the brain was performed due to new headache pattern which was within normal limits Reglan and Benadryl as well as Motrin given pending reevaluation patient likely discharged home with outpatient neurology follow-up 07/27/18 00:33 On reevaluation at 12:55 AM patient is feeling better and requesting to be discharged home CT scan results were reviewed with the patient with her daughter at the bedside , patient made aware that there is a small risk of on detected subarachnoid hemorrhage on the CT scan She is refusing lumbar puncture at this time which seems reasonable as her symptoms have improved She has agreed to return should her condition worsen in any way. She is aware that her medications given to her today will cause drowsiness and that she should not operate a motor vehicle, her daughter will drive her home. <Anai Orr - Last Filed: 07/27/18 01:07>
[2018-07-26] MEDS ORDERED: IBUPROFEN 600 MG TABLET (FP) PO ONE (22:55)
--- NOTE | 2018-07-26 23:03 | PDOC ---
History of Present Illness - General Chief Complaint: Headache Stated Complaint: PAIN IN FACE HIGH BLOOD PRESURE Time Seen by Provider: 07/26/18 21:41 - History of Present Illness Initial Comments: 07/26/18 23:43 43f with pmh of fibroids s/p hysterectomy presents to the ED for onset of left sided frontal headache and numbness over left forehead and face since 8:30PM. She also complains of the headache worsening when exposed to bright lights and loud noises. She experienced some nausea earlier. 8/10 in intensity. No vomiting. Never had that kind of headache before. Usually, her headache are bitemporal. She didn't try taking any medication since that happened. No change in vision. Unsure if sudden onset, may be "worst headache of her life ". Past History - Past Medical History Allergies/Adverse Reactions: Allergies Allergy/AdvReac Type Severity Reaction Status Date / Time No Known Drug Allergies Allergy Verified 07/26/18 21:42 Home Medications: Ambulatory Orders NK [No Known Home Medication] 07/27/18 Anemia: Yes Asthma: No Cancer: No Cardiac Disorders: No CVA: No COPD: No CHF: No Dementia: No Diabetes: No GI Disorders: No Disorders: No HTN: No Hypercholesterolemia: No Liver Disease: No Seizures: No Thyroid Disease: No - Surgical History Abdominal Surgery: No Appendectomy: Yes Cardiac Surgery: No Cholecystectomy: No Lung Surgery: No Neurologic Surgery: No Orthopedic Surgery: No - Suicide/Smoking/Psychosocial Hx Smoking History: Current every day smoker Have you smoked in the past 12 months: Yes Number of Cigarettes Smoked Daily: 40 Cigars Per Day: 30 Information on smoking cessation initiated: No 'Breaking Loose' booklet given: 04/06/18 Hx Alcohol Use: No Drug/Substance Use Hx: No Substance Use Type: None Hx Substance Use Treatment: No Review of Systems - Review of Systems Able to Perform ROS?: Yes Is the patient limited Frisian proficient: No Constitutional: No: Symptoms Reported HEENTM: No: Symptoms Reported Respiratory: No: Symptoms reported Cardiac (ROS): No: Symptoms Reported ABD/GI: No: Symptoms Reported : No: Symptoms Reported Musculoskeletal: No: Symptoms Reported Integumentary: No: Symptoms Reported Neurological: Yes: See HPI All Other Systems: Reviewed and Negative *Physical Exam - Vital Signs Last Vital Signs Temp Pulse Resp BP Pulse Ox 98.2 F 78 18 163/82 99 07/26/18 21:42 07/26/18 21:42 07/26/18 21:42 07/26/18 21:42 07/26/18 21:42 - Physical Exam General Appearance: Yes: Nourished, Appropriately Dressed. No: Apparent Distress HEENT: positive: EOMI, ELIZABETH, Normal ENT Inspection Respiratory/Chest: positive: Lungs Clear, Normal Breath Sounds. negative: Chest Tender, Respiratory Distress Cardiovascular: positive: Regular Rhythm, Regular Rate, S1, S2 Gastrointestinal/Abdominal: positive: Normal Bowel Sounds, Flat, Soft. negative : Tender Integumentary: positive: Normal Color, Dry, Warm Neurologic: positive: Fully Oriented, Alert, Normal Mood/Affect, Normal Response , Motor Strength 5/5 Moderate Sedation - Procedure Monitoring Vital Signs: Procedure Monitoring Vital Signs Temperature 98.2 F 07/26/18 21:42 Pulse Rate 78 07/26/18 21:42 Respiratory Rate 18 07/26/18 21:42 Blood Pressure 163/82 07/26/18 21:42 O2 Sat by Pulse Oximetry (%) 99 07/26/18 21:42 ED Treatment Course - LABORATORY CBC & Chemistry Diagram: 07/26/18 21:56 07/26/18 21:56 - ADDITIONAL ORDERS Additional order review: Laboratory Results 07/26/18 07/26/18 21:56 21:55 PT with INR 11.50 INR 0.97 PTT (Actin FS) 28.4 Sodium 140 Potassium 3.9 Chloride 107 Carbon Dioxide 26 Anion Gap 7 L BUN 10 Creatinine 0.9 Creat Clearance w eGFR > 60 Random Glucose 96 Calcium 9.0 Total Bilirubin 0.2 AST 16 ALT 17 Alkaline Phosphatase 59 Total Protein 7.3 Albumin 3.8 07/26/18 21:56 RBC 4.54 MCV 80.8 MCHC 32.7 RDW 18.5 H MPV 10.0 D Neutrophils % 62.7 D Lymphocytes % 28.6 D Monocytes % 4.6 Eosinophils % 3.4 Basophils % 0.7 - Medications Given in the ED: ED Medications Discontinued Medications Generic Name Dose Route Start Last Admin Trade Name Freq PRN Reason Stop Dose Admin Acetaminophen 1,000 mg 07/26/18 21:48 07/26/18 22:02 Tylenol - PO 07/26/18 21:49 1,000 mg ONCE ONE Administration Medical Decision Making - Medical Decision Making 07/26/18 23:50 Most of the pain resolved after receiving Tylenol IV in Triage. Will obtain ct head as she's never gotten one for her headaches before. 07/27/18 00:22 CT Head: Normal brain. No acute intracranial abnormality. No hemorrhage. No visible infarct or mass. Osseous structures are intact. 07/27/18 00:57 Patient's pain relieved after 3;22 hours. ok to be discharged/ *DC/Admit/Observation/Transfer Diagnosis at time of Disposition: Migraine - Discharge Dispostion Disposition: HOME Condition at time of disposition: Improved Decision to Admit order: No - Referrals Referrals: Rohit Rodríguez MD [Primary Care Provider] - Han Siddiqui DO [Staff Physician] - - Patient Instructions Printed Discharge Instructions: Migraine -- Adult Additional Instructions: Come back to the emergency department for any new, worsening or concerning symptoms. Follow up with Dr. Siddiqui, Neurologist. - Post Discharge Activity
[2018-07-26] MEDS ORDERED: METOCLOPRAMIDE HCL INJECTION 10 MG/2 ML VIAL IVPUSH ONE (23:09)
[2018-07-27] MEDS ORDERED: IBUPROFEN 600 MG TABLET (FP) PO ONE (00:12)
[2018-07-27] MEDS ORDERED: METOCLOPRAMIDE HCL INJECTION 10 MG/2 ML VIAL ONE (00:12)
== END 2018-07-27 01:30 | disposition home or self-care (01) ==
LOC: JER 21:34
PROC: 3E033GC Introduction of Other Therapeutic Substance into Peripheral Vein, Percutaneous Approach (ICD-10-PCS; principal; 2018-07-26)
PROC: 3E033GC Introduction of Other Therapeutic Substance into Peripheral Vein, Percutaneous Approach (ICD-10-PCS; 2018-07-26)
DX: G43.909 Migraine, unspecified, not intractable, without status migrainosus (principal)
CPT/HCPCS: 36415; 70450-TC; 80053; 85025; 85610; 85730; 96374; 96375; 99282-25